=== PATIENT | female | born 2005 | race Caucasian/White ===

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

== ENCOUNTER 2024-12-14 08:44 | Emergency (ER) | payer OTHER, SELFPAY ==
[2024-12-14 08:53] VITALS: BP 125/86; PULSE 93; RESP 16; TEMP 36.8; O2SAT 100
--- NOTE | 2024-12-14 08:53 | ECG_ITS ---
[facility] Date: 2024-12-14 Pat Name: Murphy Marks Department: Room: Gender: Female Loan Manager: : 2005 Requested By: Iman Peralta Order Number: [id number] Ramos MD: Jose Gotti M.D. Measurements Intervals [place] Rate: 101 P: 81 [place]: 130 QRS: 86 QRSD: 74 T: -25 QT: 327 QTc: 426 Interpretive Statements SINUS TACHYCARDIA POSSIBLE LEFT ATRIAL ENLARGEMENT [-0.1mV P-WAVE IN V1/V2] NONSPECIFIC T-WAVE ABNORMALITY Compared to ECG 11/10/2022 15:45:20 Sinus rhythm no longer present T-wave abnormality still present Electronically Signed On 12-16-2024 17:55:01 SALES ACTIVITY MANAGER by Jose Gotti M.D. [id number]
--- NOTE | 2024-12-14 10:30 | XR_ITS ---
WS: [id number] Exam: XR chest 1V portable [id number] Date/Time of Exam: 12/14/2024 10:31 AM Reason For Exam: chest pain Comparison 11/10/2022. The lungs are clear and fully expanded. Normal cardiomediastinal silhouette and regional bony elements. XR/XR chest 1V portable [id number] IMPRESSION: 1. Negative chest.
[2024-12-14 11:03] LABS: Basophils % 0.4 %; Eosinophils % 0.2 %; Hematocrit 39.4 % (36-47); Lymphocytes % 40.6 %; Mean Corpuscular HGB Conc 32.7 g/dL (30-55); Mean Corpuscular Hemoglobin 29.7 pg (27-33); Mean Corpuscular Volume 90.6 fl (85-98); Mean Platelet Volume 9.5 fL (7.4-10.4); Monocytes # 0.2 10^3/uL (0.2-0.9); Monocytes % 4.8 %; Neutrophils # 2.71 10^3/uL (1.8-8.0); Neutrophils % 53.8 %; Nucleated Red Blood Cells % 0 %; Platelet Count 330 10^3/cmm (157-399); Red Blood Count 4.35 10^6/uL (3.85-5.65); Red Cell Distribution Width 12.3 % (12.1-15.1); White Blood Count 5.03 10^3/uL (4.5-13.0)
[2024-12-14 11:17] VITALS: BP 124/81; PULSE 75; RESP 16; O2SAT 99
--- NOTE | 2024-12-14 11:17 | W.ED.ARRPALP ---
HPI - Arrhythmia/Palpitations General: Chief Complaint: Arrhythmia/Palpitations Stated Complaint: chest pain Time Seen by Provider: 12/14/24 11:05 Source: patient Mode of arrival: ambulatory Limitations: no limitations History of Present Illness: 19-year-old female who states that she has been having sharp chest pains along with palpitations states been going on for months. She states she is vape for years seems to be worse after vaping. States she had an episode of her heart racing this morning that is since resolved but she states she still has a sharp burning pain in her lungs denies any severe dyspnea denies any fever. Associated symptoms: Deny nausea or vomiting Related Data Home Medications ?Medication ?Instructions ?Recorded ?Confirmed norgestimate 0.25 mg-ethinyl 1 tab PO DAILY 12/14/24 12/14/24 estradiol 35 mcg tablet (Sprintec (28)) Previous Rx's ?Medication ?Instructions ?Recorded naproxen 500 mg tablet (Naprosyn) 500 mg PO BID PRN pain #20 tabs 12/14/24 Allergies Allergy/AdvReac Type Severity Reaction Status Date / Time cefdinir (From [employer]) Allergy hives Verified 09/11/24 11:39 Review of Systems Const: Denies: fever(s), chills, body aches or change in appetite ENMT: Denies: throat pain or dental pain Card: Reports: chest pain and palpitations Resp: Denies: dyspnea GI: Denies: abdominal pain, nausea, vomiting or diarrhea Musc: Denies: neck pain or back pain Skin/Breast: Denies: rash Neuro: Denies: headache(s) PFSH ED PFSH: Surgical History History of placement of ear tubes History of tonsillectomy and adenoidectomy Family History Grandfather Bleeding disorder Grandmother CAD (coronary artery disease) Hypertension Lung disease Father CAD (coronary artery disease) Social History Smoking and tobacco/nicotine status: never used tobacco/nicotine Second hand smoke exposure: No Alcohol intake: former Substance/Drug Use: never Physical Exam Const: COMMON NORMALS: no acute distress, patient oriented x3 and healthy appearing HENMT: COMMON NORMALS: normocephalic and atraumatic HEAD & SCALP: normocephalic and atraumatic Eye: COMMON NORMALS: conjunctivae normal CONJUNCTIVA: Yes conjunctivae normal Neck/C-Spine: COMMON NORMALS: full ROM and supple Chest: COMMONS NORMALS: normal inspection of the chest Resp: COMMON NORMALS: normal respiratory effort, No retractions, No use of accessory muscles and clear to auscultation bilaterally AUSCULTATION: clear to auscultation bilaterally Cardio: COMMON NORMALS: regular rate, regular rhythm and No murmurs present (Cardio) RATE: regular rate RHYTHM: regular rhythm GI: COMMON NORMALS: Normal to inspection, nondistended, normoactive bowel sounds present, Soft to palpation, non-tender and no masses PALPATION: Yes Soft to palpation Extremity: COMMON NORMALS: normal to inspection and full ROM Neuro: COMMON NORMALS: patient oriented x3, moves all extremities and no focal motor deficits Psych: COMMON NORMALS: mental status grossly normal, Normal thought process present and cooperative THOUGHT PROCESS: Normal thought process present Skin: COMMON NORMALS: no rashes or lesions noted and no wounds GENERAL SKIN EXAM: no rashes or lesions noted Course Vital Signs: Vital signs: Vital Signs Temperature 98.3 F 12/14/24 08:53 Pulse Rate 77 12/14/24 12:00 Respiratory Rate 16 12/14/24 11:17 Blood Pressure 121/69 12/14/24 12:00 Pulse Oximetry 100 12/14/24 12:00 Oxygen Delivery Me thod Room Air 12/14/24 12:00 MDM - Arrhythmia/Palpitations Medical Decision Making Patient presents for chest pain sound like its likely pleuritic pain. X-ray blood work here are normal patient stable for discharge at this time no signs of PE or pneumonia patient's follow-up PCP return if worsening. Medical Records I reviewed the patient's medical records. Lab Data I reviewed the patient's lab results. 12/14/24 10:50 12/14/24 10:50 Radiology Impressions Chest X-Ray 12/14/24 10:30 IMPRESSION: 1. Negative chest. Laboratory Results WBC 5.03 10^3/uL (4.5-13.0) 12/14/24 10:50 RBC 4.35 10^6/uL (3.85-5.65) 12/14/24 10:50 Hgb 12.90 g/dL (12.4-14.8) 12/14/24 10:50 Hct 39.4 % (36-47) 12/14/24 10:50 MCV 90.6 fl (85-98) 12/14/24 10:50 MCH 29.7 pg (27-33) 12/14/24 10:50 MCHC 32.7 g/dL (30-55) 12/14/24 10:50 RDW 12.3 % (12.1-15.1) 12/14/24 10:50 Plt Count 330 10^3/cmm (157-399) 12/14/24 10:50 MPV 9.5 fL (7.4-10.4) 12/14/24 10:50 Neut % (Auto) 53.8 % 12/14/24 10:50 Lymph % (Auto) 40.6 % 12/14/24 10:50 Mills % (Auto) 4.8 % 12/14/24 10:50 Eos % (Auto) 0.2 % 12/14/24 10:50 Baso % (Auto) 0.4 % 12/14/24 10:50 Neut # (Auto) 2.71 10^3/uL (1.8-8.0) 12/14/24 10:50 Lymph # (Auto) 2.0 10^3/uL (1.5-6.5) 12/14/24 10:50 Mills # (Auto) 0.2 10^3/uL (0.2-0.9) 12/14/24 10:50 Eos # (Auto) 0.0 10^3/uL (0.0-0.8) 12/14/24 10:50 Baso # (Auto) 0.0 10^3/uL (0.0-0.1) 12/14/24 10:50 Nucleated RBC % (auto) 0 % 12/14/24 10:50 Nucleated RBCs # 0.0 /100WBC 12/14/24 10:50 Sodium 139 mmol/L (136-145) 12/14/24 10:50 Potassium 4.4 mmol/L (3.5-5.1) 12/14/24 10:50 Chloride 101 mmol/L (98-107) 12/14/24 10:50 Carbon Dioxide 25 mmol/L (22-29) 12/14/24 10:50 Anion Gap 17.4 (5-19) 12/14/24 10:50 BUN 5 mg/dL (6-20) L 12/14/24 10:50 Creatinine 0.6 mg/dL (0.5-0.9) 12/14/24 10:50 GFR Calculation 127.5 mL/min (90-130) 12/14/24 10:50 Glucose 86 mg/dL (65-115) 12/14/24 10:50 Calculated Osmolality 285 mOsm/kg (285-295) 12/14/24 10:50 Calcium 10.5 mg/dL (8.5-10.5) 12/14/24 10:50 Total Bilirubin 0.3 mg/dL (0.15-1.2) 12/14/24 10:50 AST 22 U/L (0-32) 12/14/24 10:50 ALT 24 U/L (0-33) 12/14/24 10:50 Alkaline Phosphatase 60 U/L (35-105) 12/14/24 10:50 Troponin T Baseline < 6 ng/L (0-10) 12/14/24 10:50 Total Protein 8.2 g/dL (6.6-8.7) 12/14/24 10:50 Albumin 5.2 g/dL (3.5-5.2) 12/14/24 10:50 Globulin 3.0 g/dL (1.3-4.6) 12/14/24 10:50 All radiology interpretation(s) finalized by discharge EKG Data EKG 1: I personally reviewed and interpreted this EKG as follows: EKG interpretation date: 12/14/24 EKG interpretation time: 12:15 Interpretation: nsr hr [address] elevation qrs 87 [id number] Other EKG comments: Chest X-Ray 12/14/24 10:30 IMPRESSION: 1. Negative chest. Discharge Plan Discharge Patient Disposition: Home Clinical Impression: Chest pain Condition: Stable Prescriptions: New naproxen [Naprosyn] 500 mg tablet 500 mg PO BID PRN (Reason: pain) Qty: 20 0RF No Action norgestimate-ethinyl estradiol [Sprintec (28)] 0.25-35 mg-mcg tablet 1 tab PO DAILY Discharge Orders: Discharge ED (Routine); Ordered 12/14/24 Ordered By: Suyapa Galloway Discharge Diet: Advance as tolerated Discharge Activity: Resume usual activity Patient Instructions: Chest Pain (ED) Print Language: Citizen [place] Coding Level of Care Code ED Commercial Property Manager for Manan Mcqueen
[2024-12-14 11:21] LABS: Troponin(5th) Baseline < 6 ng/L (0-10)
[2024-12-14] MEDS: ketorolac 60 mg/2 mL INJ IM (11:23)
[2024-12-14] MEDS: dexamethasone 10 mg/mL INJ IM (11:23)
[2024-12-14 11:39] LABS: Alanine Aminotransferase 24 U/L (0-33); Albumin Level 5.2 g/dL (3.5-5.2); Alkaline Phosphatase 60 U/L (35-105); Anion Gap 17.4 (5-19); Aspartate Amino Transferase 22 U/L (0-32); Blood Urea Nitrogen 5 mg/dL (6-20); Calcium 10.5 mg/dL (8.5-10.5); Carbon Dioxide 25 mmol/L (22-29); Chloride 101 mmol/L (98-107); Creatinine Clr Calc Pharmacy 140.7251; Glomerular Filtration Rate 127.5 mL/min (90-130); Glucose 86 mg/dL (65-115); Osmolality Calculated 285 mOsm/kg (285-295); Potassium 4.4 mmol/L (3.5-5.1); Sodium 139 mmol/L (136-145); Total Bilirubin 0.3 mg/dL (0.15-1.2); Total Protein 8.2 g/dL (6.6-8.7)
[2024-12-14 12:00] VITALS: BP 121/69; PULSE 77; O2SAT 100
--- NOTE | 2024-12-14 12:30 | ECG_ITS ---
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
[2024-12-14 12:32] VITALS: BP 121/69; PULSE 72; O2SAT 99
== END 2024-12-14 12:33 | disposition home or self-care (01) ==
PROVIDERS: Physician Assistant; Emergency Provider Emergency Medicine
DX: R07.9 Chest pain, unspecified (principal); F17.290 Nicotine dependence, other tobacco product, uncomplicated
CPT/HCPCS: 36415; 71045; 80053; 84484; 85025; 93005; 96372; 99285; J1100; J1885